=== PATIENT | male | born 1960 | race Caucasian/White ===

== ENCOUNTER 2016-10-08 14:29 | Emergency (ER) | payer OTHER ==
[~2016-10-08] VITALS: Ht 190.5 cm; Wt 93.0 kg
--- NOTE | 2016-10-08 16:55 | ED PSYCHIATRIC COMPLAINT ---
History of Present Illness General Chief Complaint: ETOH/Drug Related Complaint Stated Complaint: REQ ALCOHOL/OPIOID DETOX Source: patient Exam Limitations: no limitations Allergies Coded Allergies: venom-honey bee (ANAPHYLAXIS 10/08/16) Reconcile Medications Clonidine HCl 0.1 MG TABLET 1 TAB PO Q8 PRN opiate withdrawal symptoms Diphenoxylate HCl/Atropine (Lomotil 2.5-0.025 MG Tablet) 2.5 MG-0.025 MG TABLET 1 TAB PO Q6 PRN DIARRHEA Folic Acid 1 MG TABLET 1 TAB PO DAILY vitamin Lorazepam (Ativan) 1 MG TABLET 1-2 TAB PO Q4 PRN withdrawal symptoms do not drink alcohol while taking this medication Magnesium Oxide 400 MG TABLET 1 TAB PO DAILY HYPOMAGNESEMIA Multiple Vitamin (Multivitamins) 1 EACH TABLET 1 TAB PO DAILY vitamin Ondansetron (Zofran Odt) 4 MG TAB.RAPDIS 1 TAB SL TID PRN NAUSEA Thiamine HCl 100 MG TABLET 1 TAB PO DAILY VITAMIN Triage Note: PT STATES HE IS HERE FOR ETOH AND HEROIN DETOX. PT ADMITS TO USING 2 BOTTLES OF VODKA DAILY AND HEROIN 2 TO 3 BUNDLES DAILY.. PT LAST DETOX 3 WEEKS AGO AND STATES HE LEFT EARLY. PT DENIES SI HI AT THIS TIME. Triage Nurses Notes Reviewed? yes HPI: patient is a 56-year-old male presents requesting alcohol and opiate detox. Patient reports that he drinks 2 pints of vodka daily, last drink was yesterday. Patient uses 2-3 bundles of heroin daily, last use was yesterday. Patient currently feeling anxiety, shakiness, nausea. Symptoms are currently severe. Patient was in [facility] approximately 4 weeks ago for 2 days but reports that he left due to them only treating him for his alcohol detox and not for the opiate detox causing him to go into opiate withdrawal delirium. Patient denies history of seizures. Patient denies recent trauma, suicidal ideation, homicidal ideation (KOBY STILL,CHASITY) Vital Signs & Intake/Output Vital Signs & Intake/Output Vital Signs Date Time Temp Pulse Resp B/P B/P Pulse O2 O2 Flow FiO2 Mean Ox Delivery Rate 10/09 0155 97.9 78 18 128/86 96 10/09 2255 60 16 140/78 10/08 2254 60 16 140/78 100 Room Air 10/08 2101 98.2 75 18 130/78 05/01 2102 98.2 75 18 130/78 95 Room Air 10/08 1919 81 16 120/74 92 Room Air 10/08 1745 Room Air 10/08 1745 97.5 85 20 156/85 10/08 1733 97.5 85 20 156/85 98 Room Air ED Intake and Output 10/09 0000 10/08 1200 Intake Total 1100 Output Total Balance 1100 Intake, IV 1100 Patient 205 lb Weight Weight Reported by Patient Measurement Method Past History Travel History Traveled to [place] past 21 day No Medical History Any Pertinent Medical History? see below for history Psychiatric: alcohol dependence, IV drug abuse Surgical History Surgical History: non-contributory Psychosocial History What is your primary language Bolivian Tobacco Use: Current Daily Use Daily Tobacco Use Amount/Type: => 5 Cigarettes daily ETOH Use: alcoholic Illicit Drug Use: heroin Family History Hx Contributory? No (CHASITY VICENTE) Review of Systems Review of Systems Constitutional: Reports: chills, malaise. Denies: fever. EENTM: Reports: no symptoms. Respiratory: Denies: cough, short of breath. Cardiovascular: Denies: chest pain. GI: Reports: nausea. Denies: abdominal pain, diarrhea, vomiting. Musculoskeletal: Reports: muscle pain. Skin: Reports: no symptoms. Neurological/Psychological: Reports: headache. Denies: numbness, unable to move lower ext, unable to move upper ext. Hematologic/Endocrine: Denies: bruising, bleeding. Immunologic/Allergic: Denies: splenectomy. (CHASITY VICENTE) Physical Exam Physical Exam General Appearance: well developed/nourished, alert, awake Head: atraumatic, normal appearance Eyes: Bilateral: normal appearance, PERRL, EOMI. Ears, Nose, Throat: normal pharynx, normal ENT inspection, hearing grossly normal Neck: normal inspection, supple, full range of motion Respiratory: normal breath sounds, chest non-tender, no respiratory distress, lungs clear Cardiovascular: regular rate/rhythm (no appreciable murmur) Gastrointestinal: soft, non-tender Neurological/Psychiatric: no motor/sensory deficits, awake, no suicidal or homicidal ideation Behavoir/Eye Contact/Speech: cooperative Thoughts/Hallucinations: no apparent hallucination Skin: intact, normal color, warm/dry SAD PERSONS Done? patient not suicidal (CHASITY VICENTE) Progress Differential Diagnosis: drug intoxication, drug overdose, drug withdrawal, electrolyte abnormality, IC hem/mass/tumor Initial ED EKG: normal intervals, normal sinus rhythm, no ST T wave changes (CHASITY VICENTE) Plan of Care: Orders Procedure Date/time Status EKG 10/08 175 Active CIWA 10/08 165 Active URINE DRUG SCREEN FOR ER ONLY 10/08 165 Complete MAGNESIUM 10/08 1654 Complete ETHANOL 10/08 1654 Complete COMPREHENSIVE METABOLIC PANEL 10/08 1654 Complete CBC WITHOUT DIFFERENTIAL 10/08 1654 Complete Laboratory Tests 10/08/16 1710: Anion Gap 13, Estimated GFR > 60, BUN/Creatinine Ratio 17.5, Glucose 107 H, Calcium 8.4, Magnesium 0.7 *L, Total Bilirubin 1.1, AST 134 H, ALT 86 H, Alkaline Phosphatase 110, Total Protein 7.3, Albumin 3.9, Globulin 3.4, Albumin/ Globulin Ratio 1.1, CBC w Diff NO MAN DIFF REQ, RBC 3.65 L, MCV 111.8 H, MCH 37.6 H, RDW 15.8 H, MPV 8.4, Gran % 43.1, Lymphocytes % 41.3, Monocytes % 13.7 H, Eosinophils % 0.6, Basophils % 1.3, Absolute Granulocytes 1.7, Absolute Lymphocytes 1.7, Absolute Monocytes 0.6, Absolute Eosinophils 0, Absolute Basophils 0.1, PUBS MCHC 33.6, Serum Alcohol < 10.0 10/08/16 1709: Urine Opiates Screen 1246.00, Methadone Screen < 40, Barbiturate Screen < 60, Ur Phencyclidine Scrn < 6.00, Amphetamines Screen 167, U Benzodiazepines Scrn < 85, Urine Cocaine Screen < 50, Urine Cannabis Screen 18.10 1930: Results discussed with patient. Patient reporting GI upset. Appears to be resting comfortably. Patient's CIWA scores do not meet criteria for medical admission. Will continue to monitor patient's withdrawal symptoms as magnesium is infusion 10/09/2016 12:57:50 AM: Patient continues to have a CIWA score less than 15, no history of seizures. Patient has been monitored in the emergency department for 10 hours. Magnesium repleted intravenously. We'll discharge patient home with medication for his withdrawal symptoms and magnesium. (CHASITY VICENTE) Departure Departure Time of Disposition: 41 Disposition: HOME OR SELF CARE Condition: Stable Clinical Impression Primary Impression: Hypomagnesemia Secondary Impressions: Alcohol withdrawal, Opiate withdrawal Referrals: MANISH SARAVIA,CHRISTIANE BHAKTA [facility]-,HUMAIRA SOARES MD,MANUEL Additional Instructions: Follow up with the [place] [facility] or with the IOP program that you have been in contact with. Also follow up with one of the [place] faculty practice physicians or with your primary doctor for further evaluation. Return to the ER if worsening of symptoms. Departure Forms: Customer Survey General Discharge Information Prescriptions: Current Visit Scripts Lorazepam (Ativan) 1-2 TAB PO Q4 PRN withdrawal symptoms #20 TAB do not drink alcohol while taking this medication Clonidine HCl 1 TAB PO Q8 PRN opiate withdrawal symptoms #12 TAB Folic Acid 1 TAB PO DAILY #5 TAB Multiple Vitamin (Multivitamins) 1 TAB PO DAILY #5 TAB Thiamine HCl 1 TAB PO DAILY #5 TAB Ondansetron (Zofran Odt) 1 TAB SL TID PRN NAUSEA #15 TAB Diphenoxylate HCl/Atropine (Lomotil 2.5-0.025 MG Tablet) 1 TAB PO Q6 PRN DIARRHEA #20 TAB Magnesium Oxide 1 TAB PO DAILY #7 TAB (CHASITY VICENTE) PA/CONSUMER LOAN UNDERWRITER Co-Sign Statement Statement: ED Attending supervision documentation- [] I saw and evaluated the patient. I have also reviewed all the pertinent lab results and diagnostic results. I agree with the findings and the plan of care as documented in the PA's/CONSUMER LOAN UNDERWRITER's documentation. [x] I have reviewed the ED Record and agree with the PA's/CONSUMER LOAN UNDERWRITER's documentation. [] Additions or exceptions (if any) to the PAs/CONSUMER LOAN UNDERWRITER's note and plan are summarized below: [] (RAY MCKENZIE,KASH Dumont)
[2016-10-08 17:40] LABS: ABSOLUTE BASOPHIL COUNT 0.1 /CUMM (0.0-0.2); ABSOLUTE EOSINOPHIL COUNT 0 /CUMM (0.0-0.7); ABSOLUTE GRANULOCYTE CT 1.7 /CUMM (1.4-6.5); ABSOLUTE LYMPH COUNT 1.7 /CUMM (1.2-3.4); ABSOLUTE MONOCYTE COUNT 0.6 /CUMM (0.10-0.60); BASOPHIL % 1.3 % (0.0-2.0); EOSINOPHIL % 0.6 % (0-5); GRANULOCYTE % 43.1 % (42.2-75.2); HEMATOCRIT 40.8 % (42-52); MEAN CORPUSCULAR HGB 37.6 PG (27.0-31.0); MEAN CORPUSCULAR HGB CONC 33.6 G/DL (33.0-37.0); MEAN CORPUSCULAR VOLUME 111.8 FL (80.0-94.0); MEAN PLATELET VOLUME 8.4 FL (7.4-10.4); PLATELET COUNT 94 /CUMM (130-400); RBC DISTRIBUTION WIDTH 15.8 % (11.5-14.5); RED BLOOD CELL CT 3.65 /CUMM (4.70-6.10)
[2016-10-09] MEDS ORDERED: THIAMINE HCL100 M1 PO (00:36)
[2016-10-09] MEDS ORDERED: LOMOTIL 2.5-0.1 EACH PO (00:36)
[2016-10-09] MEDS ORDERED: ZOFRAN ODT4 M1 SL (00:36)
[2016-10-09] MEDS ORDERED: CLONIDINE HCL0.1 MG PO (00:36)
[2016-10-09] MEDS ORDERED: FOLIC ACID1 M1 PO (00:36)
[2016-10-09] MEDS ORDERED: MULTIVITAMINS1 EAC9 PO (00:36)
[2016-10-09] MEDS ORDERED: ATIVAN1 M1 PO (00:36)
[2016-10-09] MEDS ORDERED: MAGNESIUM OXID400 M1 PO (00:41)
== END 2016-10-09 01:55 ==
LOC: ERH 14:29
PROVIDERS: Physician Assistant
DX: E83.42 Hypomagnesemia (principal); F10.239 Alcohol dependence with withdrawal, unspecified; F11.20 Opioid dependence, uncomplicated
CPT/HCPCS: 80307; 93005; 93010; 96374; G0480; J3101